=== PATIENT | female | born 1990 | race Caucasian/White ===

== ENCOUNTER 2016-09-20 19:59 | Emergency (ER) | payer OTHER ==
[~2016-09-20] VITALS: Ht 154.9 cm; Wt 61.2 kg
[~2016-09-20 19:59] MED LIST: BIAXIN500 MG PO; ESTRADIOL1 MG PO; IBUPROFEN800 MG PO; NORCO 5-325 TA1 EACH PO; PERCOCET 5-3251 EACH PO; PREDNISONE20 MG PO; SPRINTEC1 EACH PO; ULTRAM50 MG PO; VISTARIL50 MG PO
[2016-09-20] MEDS ORDERED: DICLOFENAC SODI75 MG PO (21:54)
[2016-09-20] MEDS ORDERED: CYCLOBENZAPRINE10 MG PO (21:54)
== END 2016-09-20 22:12 | disposition home or self-care (01) ==
LOC: ED 19:59
DX: S29.012A Strain of muscle and tendon of back wall of thorax, initial encounter (principal); F17.200 Nicotine dependence, unspecified, uncomplicated; Z98.51 Tubal ligation status; X58.XXXA Exposure to other specified factors, initial encounter
CPT/HCPCS: 99283

== ENCOUNTER 2017-10-16 18:50 | Emergency (ER) | payer MEDICAID ==
[~2017-10-16] VITALS: Ht 154.9 cm; Wt 68.5 kg
[~2017-10-16 18:50] MED LIST changes: +CYCLOBENZAPRINE10 MG PO; +DICLOFENAC SODI75 MG PO
[2017-10-16] MEDS ORDERED: AMOXICILLIN500 MG PO (19:54)
== END 2017-10-16 20:14 | disposition home or self-care (01) ==
LOC: ED 18:50
DX: J02.0 Streptococcal pharyngitis (principal); F17.200 Nicotine dependence, unspecified, uncomplicated
CPT/HCPCS: 87880; 99283

== ENCOUNTER 2018-04-25 15:00 | Emergency (ER) | payer OTHER ==
[~2018-04-25] VITALS: Ht 154.9 cm; Wt 68.5 kg
[~2018-04-25 15:00] MED LIST changes: +AMOXICILLIN500 MG PO
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
[2018-04-25] MEDS ORDERED: CYCLOBENZAPRINE10 MG PO (16:12)
== END 2018-04-25 16:15 | disposition home or self-care (01) ==
LOC: ED 15:00
DX: M54.5 Low back pain (principal); M54.6 Pain in thoracic spine; V89.2XXA Person injured in unspecified motor-vehicle accident, traffic, initial encounter; F17.200 Nicotine dependence, unspecified, uncomplicated
CPT/HCPCS: 99283

== ENCOUNTER 2019-03-30 18:49 | Emergency (ER) | payer SELFPAY ==
[~2019-03-30] VITALS: Ht 154.9 cm; Wt 69.4 kg
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
== END 2019-03-30 21:28 | disposition home or self-care (01) ==
LOC: ED 18:49
DX: B34.9 Viral infection, unspecified (principal); F17.200 Nicotine dependence, unspecified, uncomplicated
CPT/HCPCS: 71046; 87502; 99283-25

== ENCOUNTER 2022-09-11 18:40 | Emergency (ER) | payer SELFPAY ==
[~2022-09-11] VITALS: Ht 154.9 cm; Wt 76.7 kg
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
[2022-09-11] MEDS ORDERED: MACROBID 100 M100 MG PO (19:14)
[2022-09-11] MEDS ORDERED: ONDANSETRON ODT4 MG PO (19:15)
[2022-09-11 19:50] VITALS: BP 117/84
== END 2022-09-11 19:51 | disposition home or self-care (01) ==
LOC: ED 18:40
DX: N39.0 Urinary tract infection, site not specified (principal); F17.200 Nicotine dependence, unspecified, uncomplicated
CPT/HCPCS: 81001; 84703; 99284; A9270